=== PATIENT | male | born 1965 | race Caucasian/White ===

== ENCOUNTER 2023-04-29 19:19 | Emergency (ER) | payer BC, SELFPAY ==
[2023-04-29 19:25] VITALS: BP 148/89
[2023-04-29 19:31] LABS: Glucose - Point of Care 146 mg/dl (70-99)
--- NOTE | 2023-04-29 20:06 | ED.MUSCINJ ---
HPI-Injury
General
Chief Complaint: Musculo-Skeletal Complaint
Source: patient
Exam Limitations: none
Time Seen by Provider: 04/29/23 19:51
Travel History
Have you had any contact with someone who has COVID-19?: No
Do you have any symptoms of coronavirus? Fever > 100 degrees, chills, cough, shortness of breath, sore throat, loss of taste or smell, muscle aches, or headache?: No
History of Present Illness-Injury
Initial Injury comments:
57-year-old male [id number] presents complaining of right hand pain starting today. His compound bow struck his finger under high-pressure. He complains of pain mainly to the right ring finger proximally he notes some discomfort to the
middle and small fingers as well.
Phy Exam
Physical Exam
Physical Exam:
General: Well-appearing male no acute respiratory distress
HEENT: Normocephalic atraumatic
Musculoskeletal exam: Right hand ring finger ecchymotic and swollen over the proximal phalanx no deformities. Almost able to make a full fist.
The small and middle fingers are nontender.
Skin is intact without laceration
Extremities: No cyanosis
Injury Course
Orders/Labs/Results
Orders:
Orders
04/29/23 19:32
Hand, Right 3 View [CR Hand - Right Min 3 Views] Urgent
Comment: hand and fingers
Reason For Exam: injury
Abnormal Lab Results
04/29/23
19:29
POC Glucose 146 H mg/dl
(70-99)
MDM/Problems Addressed
Differential Diagnosis Includes:
Right hand injury. Consider contusion versus fracture versus dislocation
I have personally visualized the x-rays and reviewed radiology report. There is no fracture or dislocation
Suspect underlying contusion. Recommended ibuprofen and ice or Tylenol. Stable for discharge
*Critical Care Note
Total Time (30-74mins, 75-104mins- exclusive of procedures): Not Applicable
ED Attending Note
-
Portions of this chart may have been created with voice recognition software.� Occasional wrong word or��sound alike� substitutions may have occurred due to the inherent limitations of voice recognition software.
Discharge Plan
Departure
Patient Disposition: Home (Routine Discharge)
Date of Disposition: 04/29/23
Time of Disposition: 20:08
Patient with high blood pressure during this ER visit?: No
Discharge Problem:
Contusion
Instructions: Contusion (DC)
Activity Restrictions/Additional Instructions:
Continue with ice. You may use Tylenol or ibuprofen if needed for pain. Return for worsening symptoms otherwise follow-up with family doctor
Interventions
Interventions:
*Risk Screen - Suicide Last Done: 04/29/23 19:25
*General Assessment Last Done: 04/29/23 19:25
*Neglect/Abuse Screening Last Done: 04/29/23 19:25
ED- Fall Risk Assessment Last Done: 04/29/23 19:25
*ED COVID-19 Vaccine History Last Done: 04/29/23 19:25
*Nursing Disposition Last Done: 04/29/23 20:18
ED-Musculoskeletal Assessment Last Done: 04/29/23 20:12
Discharge Date and Time
Discharge Date/Time: 04/29/23 20:18
== END 2023-04-29 20:18 | disposition home or self-care (01) ==
LOC: EMR 19:19
PROVIDERS: EMERGENCY PHYSICIAN Emergency Medicine
DX: S60.041A Contusion of right ring finger without damage to nail, initial encounter (principal); W22.8XXA Striking against or struck by other objects, initial encounter
CPT/HCPCS: 99283; 73130; 82962

== ENCOUNTER → 2023-11-10 11:03 | Outpatient (REF) | payer BC, SELFPAY | LOC: RAD 11:03 | PROVIDERS: FAMILY PHYSICIAN Nurse Practitioner Family | DX: M89.8X1 Other specified disorders of bone, shoulder (principal); N20.0 Calculus of kidney; R82.992 Hyperoxaluria | CPT/HCPCS: 73000; 74018 ==